=== PATIENT | male | born 1975 | race Caucasian/White ===

== ENCOUNTER 2017-08-12 10:41 | Emergency (ER) | payer MEDICAID ==
[~2017-08-12] VITALS: Ht 167.6 cm; Wt 70.0 kg
[~2017-08-12 10:41] MED LIST: ESOM20CA PO; GABA-532 PO; HYDR-3964 PO; OXCA300T PO; OXCA600T PO
[2017-08-12 10:45] VITALS: BP 95/60
[2017-08-12] MEDS ORDERED: LIDOcaine 1.5% w/epinephrine 1:200,000 5ml ampul IJ ONE (11:20)
[2017-08-12] MEDS ORDERED: cephalexin 250mg capsule PO ONE (11:25)
[2017-08-12] MEDS ORDERED: CEPH500C5 PO (11:41)
== END 2017-08-12 12:13 | disposition home or self-care (01) ==
LOC: ER 10:41
DX: S61.216A Laceration without foreign body of right little finger without damage to nail, initial encounter (principal); I10 Essential (primary) hypertension; E11.9 Type 2 diabetes mellitus without complications; W18.39XA Other fall on same level, initial encounter; Y93.89 Activity, other specified; Y92.89 Other specified places as the place of occurrence of the external cause; Y99.8 Other external cause status
CPT/HCPCS: 12041; 99284; A6449; J3490

== ENCOUNTER 2017-11-06 10:48 | Emergency (ER) | payer MEDICAID ==
[~2017-11-06] VITALS: Ht 167.6 cm; Wt 68.2 kg
[~2017-11-06 10:48] MED LIST changes: +CEPH500C5 PO; -OXCA300T PO; +OXCA300T16 PO; -OXCA600T PO; +OXCA600T9 PO
[2017-11-06] MEDS ORDERED: TETanus/Pertussis (Acell)/Diphther VAC/PF (Tdap-Adult) 0.5ml syringe IM ONE (12:05)
[2017-11-06] MEDS ORDERED: LIDOcaine 4% (40 mg/ml) topical solution 50ml TP ONE (12:05)
[2017-11-06] MEDS ORDERED: HYDROcodone/acetaminophen 10/325mg tab PO ONE (12:10)
[2017-11-06] MEDS ORDERED: cephalexin 500mg capsule PO ONE (12:10)
[2017-11-06] MEDS ORDERED: gentamicin 0.1% topical ointment 15gm TP SCH (12:50)
[2017-11-06] MEDS ORDERED: CEPH500C5 PO (13:41)
[2017-11-06 14:27] VITALS: BP 123/86
== END 2017-11-06 14:29 | disposition home or self-care (01) ==
LOC: ER 10:49
DX: T24.212A Burn of second degree of left thigh, initial encounter (principal); F17.200 Nicotine dependence, unspecified, uncomplicated; Z98.890 Other specified postprocedural states; Z79.899 Other long term (current) drug therapy; X08.8XXA Exposure to other specified smoke, fire and flames, initial encounter; Y93.89 Activity, other specified; Y92.89 Other specified places as the place of occurrence of the external cause; Y99.9 Unspecified external cause status
CPT/HCPCS: 16020; 90471; 90715; 99284; A6255; A6449

== ENCOUNTER 2019-04-29 12:49 | Emergency (ER) | payer MEDICAID ==
[~2019-04-29] VITALS: Ht 167.6 cm; Wt 68.2 kg
[~2019-04-29 12:49] MED LIST changes: -CEPH500C5 PO
[2019-04-29 13:01] VITALS: BP 102/67
[2019-04-29] MEDS ORDERED: acetaminophen 325mg tablet PO ONE (13:15)
== END 2019-04-29 13:35 | disposition home or self-care (01) ==
LOC: ER 12:49
DX: S90.822A Blister (nonthermal), left foot, initial encounter (principal); S90.821A Blister (nonthermal), right foot, initial encounter; F31.9 Bipolar disorder, unspecified; Z59.0 Homelessness; Z72.89 Other problems related to lifestyle; Z98.890 Other specified postprocedural states; Z79.899 Other long term (current) drug therapy; X58.XXXA Exposure to other specified factors, initial encounter; Y93.01 Activity, walking, marching and hiking; Y92.89 Other specified places as the place of occurrence of the external cause; Y99.8 Other external cause status
CPT/HCPCS: 99282

== ENCOUNTER 2019-06-16 19:07 | Inpatient (IN) | payer MEDICAID ==
[~2019-06-16] VITALS: Ht 167.6 cm; Wt 68.2 kg
[2019-06-16] MEDS ORDERED: ondansetron/PF 4mg/2ml inj IV ONE (19:40)
[2019-06-16] MEDS ORDERED: normal saline 1000ML IV soln IVB ONE ×3 (19:40→22:15)
[2019-06-16 19:53] LABS: CLARITY,URINE CLEAR (Clear); GLUCOSE, URINE NEGATIVE (Neg); KETONES,URINE TRACE mg/dl (Neg); LEUKOCYTE ESTERASE ,URINE NEGATIVE (Neg); NITRITES, URINE NEGATIVE (Neg); OCCULT BLOOD,URINE NEGATIVE (Neg); PROTEIN,URINE NEGATIVE (Neg); UROBILINOGEN,URINE >=8.0 E.U/dL (0.2-1.0)
[2019-06-16 20:00] LABS: BASOPHILS # (AUTO) 0.1 X10'3 (0-0.2); BASOPHILS % (AUTO) 0.3 % (0-1); EOSINOPHILS % (AUTO) 0.2 % (0-6); HEMATOCRIT 40.5 % (42.0-52.0); HEMOGLOBIN 13.6 g/dl (14.0-17.9); LYMPHOCYTES # (AUTO) 0.4 X10'3 (1.1-4.8); LYMPHOCYTES % (AUTO) 1.9 % (21-51); MEAN CORPUSCULAR HEMOGLOBIN 32.4 PG (27.0-31.0); MEAN CORPUSCULAR HGB CONC 33.5 g/dL (33.0-36.5); MEAN CORPUSCULAR VOLUME 96.4 FL (78-98); MEAN PLATELET VOLUME 7.6 FL (7.4-10.4); MONOCYTES # (AUTO) 0.4 X10'3 (0-0.9); NEUTROPHILS # (AUTO) 19.4 X10'3 (1.8-7.7); NEUTROPHILS % (AUTO) 95.6 % (42-75); PLATELET COUNT 253 X10'3 (140-440); RED CELL DISTRIBUTION WIDTH 13.9 % (11.5-14.5); WHITE BLOOD COUNT 20.3 X10'3 (4.5-11.0)
[2019-06-16 20:08] LABS: ALANINE AMINOTRANSFERASE 42 U/L (12-78); ALBUMIN 3.1 G/DL (3.4-5.0); ALKALINE PHOSPHATASE 81 IU/L (46-116); ANION GAP 6 (8-16); ASPARTATE AMINO TRANSFERASE 26 U/L (10-37); BILIRUBIN,TOTAL 0.7 MG/DL (0.1-1.0); BLOOD UREA NITROGEN 15 MG/DL (7-18); BUN/CREATININE RATIO 12.6 (5.4-32.0); CALCIUM 8.5 MG/DL (8.5-10.1); CHLORIDE 104 MMOL/L (99-107); CREATININE 1.19 MG/DL (0.60-1.10); GLUCOSE 99 MG/DL (70-104); LIPASE 119 U/L (73-393); POTASSIUM 3.5 MMOL/L (3.5-5.1); SODIUM 136 MMOL/L (135-145); TOTAL PROTEIN 6.3 G/DL (6.4-8.2); URINE AMPHETAMINE SCREEN POSITIVE (Neg); URINE BARBITUATE SCREEN NEGATIVE (Neg); URINE BENZODIAZEPINES SCREEN NEGATIVE (Neg); URINE CANNABINOID SCREEN NEGATIVE (Neg); URINE COCAINE SCREEN NEGATIVE (Neg); URINE METHADONE SCREEN NEGATIVE (Neg); URINE OPIATE SCREEN NEGATIVE (Neg); URINE PHENCYCLIDINE SCREEN NEGATIVE (Neg); eGFR 66 ML/MIN
[2019-06-16 20:11] LABS: COLOR,URINE DARK YELLOW (Yellow); UA COLLECTION TYPE VOIDED
--- NOTE | 2019-06-16 20:13 | NUR ---
assisting RN with pt care, 2nd liter NS infusing w/o, gave pt warm blanket
[2019-06-16 20:35] LABS: TOTAL CELLS COUNTED 100
[2019-06-16 20:36] LABS: PLATELET ESTIMATE NORMAL
[2019-06-16] MEDS ORDERED: normal saline 1000ML IV soln IV ONE (21:10)
[2019-06-16 21:24] LABS: MAGNESIUM 1.7 MG/DL (1.5-2.4)
[2019-06-16] MEDS ORDERED: azithromycin/NS 500mg/250ml 250 ML IV ONE (22:05)
[2019-06-16] MEDS ORDERED: CefTRIAXone 2gm/D5W 50ml 50 ML IV ONE (22:05)
[2019-06-16] MEDS ORDERED: NO HOME MEDS (23:29)
[2019-06-16] MEDS ORDERED: vancomycin/NS 1 GM ADD-VANTAGE 250 ML IV ONE (23:45)
[2019-06-16] MEDS: normal saline 1000ml 1,000 ML IV SCH (23:48)
[2019-06-16] MEDS ORDERED: magnesium hydroxide 30ml (MOM) UD suspension PO PRN (23:50)
[2019-06-16] MEDS ORDERED: mag hydrox/Alum hydrox/simeth 30ml oral suspension PO PRN (23:50)
[2019-06-16] MEDS ORDERED: ondansetron/PF 4mg/2ml inj IV PRN (23:50)
[2019-06-16] MEDS ORDERED: HYDROcodone/acetaminophen 5mg/325mg tablet PO PRN (23:50)
[2019-06-16] MEDS ORDERED: acetaminophen 325mg tablet PO PRN (23:50)
--- NOTE | 2019-06-17 00:30 | NUR ---
Received report from Ramona ISLAS from ED. Patient came up to the floor via gurney. Patient able to transfer into bed with minimal help. Bed in low and locked position. Call light placed within reach.
[2019-06-17] MEDS: normal saline 1000ml 1,000 ML IV SCH (00:43)
[2019-06-17 00:45] VITALS: BP 83/57
--- NOTE | 2019-06-17 01:06 | NUR ---
Attempted to do 2 RN skin check. Patient refusing to let RN's see his skin.
[2019-06-17 05:15] LABS: BASOPHILS # (AUTO) 0.1 X10'3 (0-0.2); BASOPHILS % (AUTO) 0.5 % (0-1); EOSINOPHILS # (AUTO) 0.1 X10'3 (0-0.9); EOSINOPHILS % (AUTO) 0.5 % (0-6); HEMATOCRIT 35.2 % (42.0-52.0); HEMOGLOBIN 11.7 g/dl (14.0-17.9); LYMPHOCYTES % (AUTO) 4.6 % (21-51); MEAN CORPUSCULAR HEMOGLOBIN 32.4 PG (27.0-31.0); MEAN CORPUSCULAR HGB CONC 33.2 g/dL (33.0-36.5); MEAN CORPUSCULAR VOLUME 97.6 FL (78-98); MEAN PLATELET VOLUME 8.1 FL (7.4-10.4); MONOCYTES % (AUTO) 4.8 % (2-12); NEUTROPHILS # (AUTO) 18.6 X10'3 (1.8-7.7); NEUTROPHILS % (AUTO) 89.6 % (42-75); PLATELET COUNT 215 X10'3 (140-440); RED BLOOD COUNT 3.61 X10'6 (4.70-6.10); RED CELL DISTRIBUTION WIDTH 14.6 % (11.5-14.5); WHITE BLOOD COUNT 20.7 X10'3 (4.5-11.0)
[2019-06-17 05:24] LABS: ALANINE AMINOTRANSFERASE 32 U/L (12-78); ALBUMIN 2.3 G/DL (3.4-5.0); ALBUMIN/GLOBULIN RATIO 0.8 (1.1-1.5); ALKALINE PHOSPHATASE 69 IU/L (46-116); ANION GAP 9 (8-16); ASPARTATE AMINO TRANSFERASE 21 U/L (10-37); BILIRUBIN,TOTAL 0.3 MG/DL (0.1-1.0); BLOOD UREA NITROGEN 12 MG/DL (7-18); BUN/CREATININE RATIO 11.9 (5.4-32.0); CALCIUM 7.7 MG/DL (8.5-10.1); CHLORIDE 112 MMOL/L (99-107); CREATININE 1.01 MG/DL (0.60-1.10); GLUCOSE 115 MG/DL (70-104); POTASSIUM 3.8 MMOL/L (3.5-5.1); SODIUM 143 MMOL/L (135-145); TOTAL CARBON DIOXIDE 21.7 MMOL/L (24-32); TOTAL PROTEIN 5.1 G/DL (6.4-8.2); eGFR 80 ML/MIN
[2019-06-17 06:00] VITALS: BP 92/56
--- NOTE | 2019-06-17 06:05 | NUR ---
RECEIVED REPORT FROM ROSHAN CASTILLO
--- NOTE | 2019-06-17 06:23 | NUR ---
Problems reprioritized. Patient report given, questions answered & plan of care reviewed with Nova ISLAS.
[2019-06-17] MEDS ORDERED: CefTRIAXone 2gm/D5W 50ml 50 ML IV SCH (08:00)
[2019-06-17] MEDS ORDERED: heparin, porcine 5000 units/ml vial SQ SCH (08:00)
[2019-06-17 10:00] VITALS: BP 80/51
--- NOTE | 2019-06-17 10:00 | NUR ---
PT IS REFUSING TO KEEP TELE ON AT THIS TIME, CONTINUE TO EDUCATE AND MONITOR
--- NOTE | 2019-06-17 11:17 | NUR ---
NOTIFYING HOSPITALIST OF PT WANTING TO LEAVE, I ASKED IF IT WAS POSSIBLE FOR HOSPITALIST TO COME TO FLOOR AND TALK W/PT, CONTINUE TO EDUCATE PT
[2019-06-17] MEDS ORDERED: vancomycin/NS 1 GM ADD-VANTAGE 250 ML IV SCH (12:00)
--- NOTE | 2019-06-17 12:17 | NUR ---
PAGER ID: [phone] MESSAGE: [phone] Liliya Cody Patient would like to AMGenaro Person9 Addendum: 06/17/19 at 1217 by Linda Cadet RN IV taken out and intake patient tolerated well.
--- NOTE | 2019-06-17 12:20 | NUR ---
Patient stated he had a back pack and pants. Showed me a huff and stated "he needs to get this to someone, this is important"
--- NOTE | 2019-06-17 12:22 | NUR ---
Dr. Doan was notified of patient leaving AMA
--- NOTE | 2019-06-17 12:27 | NUR ---
Patient was worried about the voices he has, one tells him what to do good, and the other is wrong. Educated we could get a [facility] evaluation to help with his voices due to his frustration and wanting to narrow them down. He states he has been over 160 miles, and that people take pictures of him, and tag him on facebook and other social media sites with having a criminal background it isn't good. I asked where he lived and he stated he is homeless and walks [facility].
[2019-06-18] MEDS ORDERED: VANCOMYCIN LEVEL IV ONE (11:30)
== END 2019-06-17 12:25 | disposition left against medical advice (07) | DRG 720 ==
LOC: ER 19:08 → ED HOLD 23:48 → ORTHO 4S 06-17 00:36
PROVIDERS: ADMIT Internal Medicine; ATTEND Internal Medicine
DX: A41.9 Sepsis, unspecified organism (principal); I95.9 Hypotension, unspecified; F31.9 Bipolar disorder, unspecified; F15.10 Other stimulant abuse, uncomplicated; E86.0 Dehydration; Z53.29 Procedure and treatment not carried out because of patient's decision for other reasons; Z59.0 Homelessness
CPT/HCPCS: 36415; 71045; 74176; 80053; 80305; 81003; 83605; 83690; 83735; 84145; 85025; 87040; 87081; 93306; 96374; 99285; G0378; J0456; J0696; J2405; J3370; J7030

== ENCOUNTER 2019-09-29 16:14 | Inpatient (IN) | payer MEDICAID, OTHER ==
[~2019-09-29] VITALS: Ht 167.6 cm; Wt 65.9 kg
[~2019-09-29 16:14] MED LIST changes: -ESOM20CA PO; -GABA-532 PO; -HYDR-3964 PO; +NO HOME MEDS; -OXCA300T16 PO; -OXCA600T9 PO
[2019-09-29] MEDS ORDERED: TETanus/Pertussis (Acell)/Diphther VAC/PF (Tdap-Adult) 0.5ml syringe IMVAC ONE (17:35)
[2019-09-29] MEDS ORDERED: oxyCODONE/APAP 10/325mg tablet PO ONE (19:05)
[2019-09-29 19:21] LABS: CLARITY,URINE CLEAR (Clear); COLOR,URINE YELLOW (Yellow); GLUCOSE, URINE NEGATIVE (Neg); KETONES,URINE NEGATIVE (Neg); LEUKOCYTE ESTERASE ,URINE NEGATIVE (Neg); NITRITES, URINE NEGATIVE (Neg); OCCULT BLOOD,URINE NEGATIVE (Neg); PH,URINE 7.5 (4.8-8.0); PROTEIN,URINE NEGATIVE (Neg); UROBILINOGEN,URINE 0.2 E.U/dL (0.2-1.0)
[2019-09-29 19:22] LABS: UA COLLECTION TYPE VOIDED
--- NOTE | 2019-09-29 20:09 | NUR ---
PT TO GI LAB WITH MARCELLUS
[2019-09-29 20:10] VITALS: BP 101/73
[2019-09-29] MEDS ORDERED: MIDAZolam 5mg/5ml vial ONE (20:21)
[2019-09-29] MEDS ORDERED: fentaNYL/PF 50MCG/1 ML 2ML syringe ONE (20:21)
[2019-09-29] MEDS ORDERED: LIDOcaine Viscous 15ml cup ONE (20:22)
[2019-09-29 20:25] LABS: BASOPHILS # (AUTO) 0.2 X10'3 (0-0.2); HEMOGLOBIN 13.6 g/dl (14.0-17.9); LYMPHOCYTES # (AUTO) 2.1 X10'3 (1.1-4.8); MEAN CORPUSCULAR HGB CONC 33.8 g/dL (33.0-36.5)
[2019-09-29 20:26] LABS: BASOPHILS % (AUTO) 2.4 % (0-1); EOSINOPHILS # (AUTO) 0.7 X10'3 (0-0.9); EOSINOPHILS % (AUTO) 9.1 % (0-6); HEMATOCRIT 40.3 % (42.0-52.0); MEAN CORPUSCULAR VOLUME 97.7 FL (78-98); MEAN PLATELET VOLUME 8.5 FL (7.4-10.4); MONOCYTES # (AUTO) 0.7 X10'3 (0-0.9); MONOCYTES % (AUTO) 9.7 % (2-12); NEUTROPHILS % (AUTO) 51.8 % (42-75); PLATELET COUNT 300 X10'3 (140-440); RED BLOOD COUNT 4.12 X10'6 (4.70-6.10); RED CELL DISTRIBUTION WIDTH 14.1 % (11.5-14.5); WHITE BLOOD COUNT 7.7 X10'3 (4.5-11.0)
[2019-09-29 20:39] LABS: ALANINE AMINOTRANSFERASE 65 U/L (12-78); ALBUMIN 3.3 G/DL (3.4-5.0); ALKALINE PHOSPHATASE 80 IU/L (46-116); ANION GAP 7 (8-16); ASPARTATE AMINO TRANSFERASE 33 U/L (10-37); BILIRUBIN,TOTAL 0.2 MG/DL (0.1-1.0); BLOOD UREA NITROGEN 18 MG/DL (7-18); BUN/CREATININE RATIO 20.2 (5.4-32.0); CALCIUM 8.6 MG/DL (8.5-10.1); CHLORIDE 104 MMOL/L (99-107); CREATININE 0.89 MG/DL (0.60-1.10); GLUCOSE 98 MG/DL (70-104); POTASSIUM 4.1 MMOL/L (3.5-5.1); SODIUM 139 MMOL/L (135-145); TOTAL CARBON DIOXIDE 28.3 MMOL/L (24-32); TOTAL PROTEIN 6.7 G/DL (6.4-8.2); eGFR > 90 ML/MIN
[2019-09-29 20:50] VITALS: BP 92/63
[2019-09-29 21:00] VITALS: BP 98/69
[2019-09-29] MEDS ORDERED: temazepam 15mg capsule PO PRN (21:00)
[2019-09-29] MEDS ORDERED: magnesium hydroxide 30ml (MOM) UD suspension PO ONE (21:05)
[2019-09-29 21:10] VITALS: BP 106/80
[2019-09-29 21:20] VITALS: BP 101/78
[2019-09-29] MEDS ORDERED: potassium CL 10mEq/100ml bag 100 ML IV PRN ×2 (21:25)
[2019-09-29] MEDS ORDERED: potassium Cl 20 mEq SR tablet PO PRN ×2 (21:25)
[2019-09-29] MEDS ORDERED: mag hydrox/Alum hydrox/simeth 30ml oral suspension PO PRN (21:25)
[2019-09-29] MEDS ORDERED: magnesium Cl slow-release 64mg tablet PO PRN (21:25)
[2019-09-29] MEDS ORDERED: morphine 2 MG/ML inj. syringe IV PRN ×2 (21:25)
[2019-09-29] MEDS ORDERED: acetaminophen 325mg tablet PO PRN ×2 (21:25)
[2019-09-29] MEDS ORDERED: magnesium hydroxide 30ml (MOM) UD suspension PO PRN (21:25)
[2019-09-29] MEDS ORDERED: magnesium 4gm in 100ml NS 100 ML IV PRN (21:25)
[2019-09-29] MEDS ORDERED: magnesium 2GM in 50ml NS 50 ML IV PRN (21:25)
[2019-09-29] MEDS ORDERED: ondansetron/PF 4mg/2ml inj IV PRN (21:25)
--- NOTE | 2019-09-29 21:48 | NUR ---
PT BACK FROM GI LAB. WILL ADMINISTER MEDS
[2019-09-29] MEDS: normal saline 1000ml 1,000 ML IV SCH (21:58)
--- NOTE | 2019-09-30 00:20 | NUR ---
PT RESTING COMFORTABLY- APPEARS TO BE ASLEEP. WILL CONTINUE TO MONITOR.
[2019-09-30] MEDS: HYDROcodone/acetaminophen 5mg/325mg tablet PO PRN ×2 (00:22→01:13)
--- NOTE | 2019-09-30 00:22 | NUR ---
PT DID NOT RECEIVE NORCO 5/325MG TAB DUE TO BEING NPO.
--- NOTE | 2019-09-30 01:51 | NUR ---
pt moved to hospital bed for comfort
--- NOTE | 2019-09-30 02:09 | NUR ---
ASSUMED CARE WHILE PRIMARY RN ON BREAK, PT MOVED TO HOSPITAL BED FOR COMFORT. USED URINAL. NO OTHER NEEDS AT THIS TIME
--- NOTE | 2019-09-30 04:46 | NUR ---
PT APPEARS TO BE SLEEPING WITH NO SIGNS OF DISTRESS OR DISCOMFORT- WILL CONTINUE TO MONITOR.
[2019-09-30 07:15] LABS: BASOPHILS % (AUTO) 0.6 % (0-1); EOSINOPHILS # (AUTO) 0.7 X10'3 (0-0.9); EOSINOPHILS % (AUTO) 10.4 % (0-6); HEMATOCRIT 37.5 % (42.0-52.0); HEMOGLOBIN 12.6 g/dl (14.0-17.9); LYMPHOCYTES # (AUTO) 2.3 X10'3 (1.1-4.8); LYMPHOCYTES % (AUTO) 34.3 % (21-51); MEAN CORPUSCULAR HGB CONC 33.5 g/dL (33.0-36.5); MEAN CORPUSCULAR VOLUME 98.5 FL (78-98); MEAN PLATELET VOLUME 8.3 FL (7.4-10.4); MONOCYTES # (AUTO) 0.7 X10'3 (0-0.9); MONOCYTES % (AUTO) 10.6 % (2-12); NEUTROPHILS # (AUTO) 2.9 X10'3 (1.8-7.7); NEUTROPHILS % (AUTO) 44.1 % (42-75); PLATELET COUNT 252 X10'3 (140-440); RED BLOOD COUNT 3.81 X10'6 (4.70-6.10); RED CELL DISTRIBUTION WIDTH 14.1 % (11.5-14.5); WHITE BLOOD COUNT 6.6 X10'3 (4.5-11.0)
[2019-09-30 07:24] LABS: ALANINE AMINOTRANSFERASE 59 U/L (12-78); ALBUMIN 2.9 G/DL (3.4-5.0); ALKALINE PHOSPHATASE 64 IU/L (46-116); ANION GAP 4 (8-16); ASPARTATE AMINO TRANSFERASE 28 U/L (10-37); BILIRUBIN,TOTAL 0.2 MG/DL (0.1-1.0); BLOOD UREA NITROGEN 14 MG/DL (7-18); BUN/CREATININE RATIO 16.5 (5.4-32.0); CALCIUM 8.3 MG/DL (8.5-10.1); CHLORIDE 108 MMOL/L (99-107); CREATININE 0.85 MG/DL (0.60-1.10); GLUCOSE 81 MG/DL (70-104); MAGNESIUM 2.3 MG/DL (1.5-2.4); POTASSIUM 4.2 MMOL/L (3.5-5.1); SODIUM 141 MMOL/L (135-145); TOTAL CARBON DIOXIDE 28.9 MMOL/L (24-32); TOTAL PROTEIN 5.8 G/DL (6.4-8.2); eGFR > 90 ML/MIN
[2019-09-30] MEDS: K and/or MAG REPLACEMENT MC SCH ×2 (08:00→20:00)
[2019-09-30] MEDS: normal saline 1000ml 1,000 ML IV SCH ×2 (10:11→17:37)
[2019-09-30] MEDS: pantoprazole 40 MG vial IV SCH ×2 (10:11→19:25)
[2019-09-30] MEDS: HYDROcodone/acetaminophen 10/325mg tab PO PRN ×3 (10:17→23:28)
--- NOTE | 2019-09-30 13:08 | NUR ---
Malnutrition Consult/RN TC: Pt admit w/ suicide attempt at alf s/p swallowing razor blade components per EMR. Hx SI past few months bashing head on wall at alf, prior homeless and meth abuse hx as well. RN reports pt appears thin and advanced to full liquid diet requesting RD recs for appropriate ONS. RD recommends ensure enlive TIDWM since pt advanced to full liquids. Malnutrition screen reports 2-13 pound wt loss though at this time still pending scaled wt this admit, no mention of cachexia/visible wasting in EMR, and pending physical assessment as well. Will f/u once more malnutrition criteria available to better determine nutrition status. Addendum: 09/30/19 at [address] Amended: Links added.
[2019-09-30 13:12] VITALS: BP 91/64
[2019-09-30 15:00] VITALS: BP 109/51
[2019-09-30 18:00] VITALS: BP 85/57
[2019-09-30] MEDS: lactose-reduced food (Ensure Enlive) - 237ml bottle PO SCH (18:31)
--- NOTE | 2019-09-30 18:46 | NUR ---
Patient in room PCU 3021. I have received report from ROSHAN MCKEON and had the opportunity to ask questions and assume patient care.
[2019-09-30 22:00] VITALS: BP 101/62
[2019-10-01 02:00] VITALS: BP 86/57
[2019-10-01] MEDS: normal saline 1000ml 1,000 ML IV SCH ×2 (03:24→05:51)
[2019-10-01] MEDS: HYDROcodone/acetaminophen 10/325mg tab PO PRN (05:50)
[2019-10-01 06:14] LABS: BASOPHILS # (AUTO) 0.1 X10'3 (0-0.2); BASOPHILS % (AUTO) 2.3 % (0-1); EOSINOPHILS # (AUTO) 0.8 X10'3 (0-0.9); HEMATOCRIT 36.7 % (42.0-52.0); HEMOGLOBIN 12.3 g/dl (14.0-17.9); LYMPHOCYTES # (AUTO) 2.1 X10'3 (1.1-4.8); LYMPHOCYTES % (AUTO) 33.6 % (21-51); MEAN CORPUSCULAR HEMOGLOBIN 33.1 PG (27.0-31.0); MEAN CORPUSCULAR HGB CONC 33.5 g/dL (33.0-36.5); MEAN CORPUSCULAR VOLUME 98.8 FL (78-98); MEAN PLATELET VOLUME 8.7 FL (7.4-10.4); MONOCYTES # (AUTO) 0.6 X10'3 (0-0.9); MONOCYTES % (AUTO) 9.7 % (2-12); NEUTROPHILS # (AUTO) 2.7 X10'3 (1.8-7.7); NEUTROPHILS % (AUTO) 42.4 % (42-75); PLATELET COUNT 260 X10'3 (140-440); RED BLOOD COUNT 3.72 X10'6 (4.70-6.10); RED CELL DISTRIBUTION WIDTH 14.3 % (11.5-14.5); WHITE BLOOD COUNT 6.3 X10'3 (4.5-11.0)
--- NOTE | 2019-10-01 06:14 | NUR ---
Problems reprioritized. Patient report given, questions answered & plan of care reviewed with ROSHAN DAVID.
[2019-10-01 06:28] LABS: ALANINE AMINOTRANSFERASE 57 U/L (12-78); ALBUMIN 2.7 G/DL (3.4-5.0); ALKALINE PHOSPHATASE 61 IU/L (46-116); ANION GAP 4 (8-16); ASPARTATE AMINO TRANSFERASE 27 U/L (10-37); BILIRUBIN,TOTAL 0.3 MG/DL (0.1-1.0); BLOOD UREA NITROGEN 14 MG/DL (7-18); BUN/CREATININE RATIO 17.3 (5.4-32.0); CALCIUM 8.4 MG/DL (8.5-10.1); CHLORIDE 108 MMOL/L (99-107); CREATININE 0.81 MG/DL (0.60-1.10); GLUCOSE 79 MG/DL (70-104); MAGNESIUM 2.1 MG/DL (1.5-2.4); POTASSIUM 4.1 MMOL/L (3.5-5.1); SODIUM 140 MMOL/L (135-145); TOTAL CARBON DIOXIDE 28.4 MMOL/L (24-32); TOTAL PROTEIN 5.5 G/DL (6.4-8.2); eGFR > 90 ML/MIN
--- NOTE | 2019-10-01 06:46 | NUR ---
Patient in room PCU 3021. I have received report from Alexei ISLAS and had the opportunity to ask questions and assume patient care.
[2019-10-01 06:58] VITALS: BP 85/54
[2019-10-01] MEDS: pantoprazole 40 MG vial IV SCH (07:15)
[2019-10-01] MEDS: K and/or MAG REPLACEMENT MC SCH (08:00)
[2019-10-01] MEDS: lactose-reduced food (Ensure Enlive) - 237ml bottle PO SCH (08:00)
[2019-10-01] MEDS ORDERED: HYDR-4383 PO ×2 (08:26→09:40)
[2019-10-01] MEDS ORDERED: pneumococcal 23-VAL P-sac vacc 25 mcg/0.5ml vial IMVAC ONE (10:00)
== END 2019-10-01 10:17 | DRG 394 ==
LOC: ER 16:14 → ED HOLD 21:24 → EEVIPCON 21:24 → PCU 3S 09-30 07:43
PROVIDERS: ADMIT Internal Medicine; ATTEND Internal Medicine
PROC: 0DC68ZZ Extirpation of Matter from Stomach, Via Natural or Artificial Opening Endoscopic (ICD-10-PCS; principal; 2019-09-29)
DX: T18.2XXA Foreign body in stomach, initial encounter (principal); R45.851 Suicidal ideations; F15.90 Other stimulant use, unspecified, uncomplicated; F31.9 Bipolar disorder, unspecified; K20.9 Esophagitis, unspecified; X58.XXXA Exposure to other specified factors, initial encounter; Y93.89 Activity, other specified; Y92.89 Other specified places as the place of occurrence of the external cause; Y99.8 Other external cause status; Z59.0 Homelessness; Z28.21 Immunization not carried out because of patient refusal
CPT/HCPCS: 36415; 43235; 71045; 74018; 74176; 80053; 81003; 83605; 83735; 85025; 85610; 87040; 87081; 90471; 90715; 99152; 99285; A4620; C9113; G0378; J2250; J3010; J7030; J7040

== ENCOUNTER 2019-12-08 15:14 | Emergency (ER) | payer MEDICAID, OTHER ==
[~2019-12-08] VITALS: Ht 167.6 cm; Wt 63.6 kg
[~2019-12-08 15:14] MED LIST changes: +HYDR-4383 PO; -NO HOME MEDS
[2019-12-08] MEDS ORDERED: normal saline 1000ml 1,000 ML IV ONE (16:30)
--- NOTE | 2019-12-08 16:35 | NUR ---
Discussed pt's audio hallucinations with SAROJ Garcia who f/u with pt who indicated he was feeling the same internally (emotionally) as when he swallowed razor blades. SAROJ Garcia placed pt on 1798 hold.
[2019-12-08] MEDS ORDERED: proCHLORperazine 10 MG/2 ml inj IV ONE (16:40)
[2019-12-08] MEDS ORDERED: diphenhydrAMINE 50 mg/ml inj IV ONE (16:40)
[2019-12-08 16:41] LABS: BASOPHILS # (AUTO) 0.1 X10'3 (0-0.2); BASOPHILS % (AUTO) 1.3 % (0-1); EOSINOPHILS # (AUTO) 0.2 X10'3 (0-0.9); EOSINOPHILS % (AUTO) 2.4 % (0-6); HEMATOCRIT 42.5 % (42.0-52.0); HEMOGLOBIN 14.3 g/dl (14.0-17.9); LYMPHOCYTES # (AUTO) 1.3 X10'3 (1.1-4.8); LYMPHOCYTES % (AUTO) 15.3 % (21-51); MEAN CORPUSCULAR HEMOGLOBIN 32.9 PG (27.0-31.0); MEAN CORPUSCULAR HGB CONC 33.6 g/dL (33.0-36.5); MEAN CORPUSCULAR VOLUME 98.2 FL (78-98); MEAN PLATELET VOLUME 8.1 FL (7.4-10.4); MONOCYTES # (AUTO) 0.5 X10'3 (0-0.9); MONOCYTES % (AUTO) 5.8 % (2-12); NEUTROPHILS # (AUTO) 6.2 X10'3 (1.8-7.7); NEUTROPHILS % (AUTO) 75.2 % (42-75); PLATELET COUNT 343 X10'3 (140-440); RED BLOOD COUNT 4.33 X10'6 (4.70-6.10); RED CELL DISTRIBUTION WIDTH 13.8 % (11.5-14.5); WHITE BLOOD COUNT 8.2 X10'3 (4.5-11.0)
[2019-12-08 16:41] LABS: CLARITY,URINE CLEAR (Clear); COLOR,URINE YELLOW (Yellow); GLUCOSE, URINE NEGATIVE (Neg); KETONES,URINE NEGATIVE (Neg); LEUKOCYTE ESTERASE ,URINE NEGATIVE (Neg); NITRITES, URINE NEGATIVE (Neg); OCCULT BLOOD,URINE TRACE-INTACT (Neg); PROTEIN,URINE NEGATIVE (Neg); UROBILINOGEN,URINE 0.2 E.U/dL (0.2-1.0)
[2019-12-08 16:45] LABS: UA COLLECTION TYPE URINAL
[2019-12-08 16:46] LABS: BACTERIA,URINE NONE SEEN /HPF (Neg); MUCUS STRANDS NONE SEEN /LPF (Neg); RBC,URINE 0-2 /HPF (0-2); SQUAMOUS EPITHELIAL CELL,UR NONE SEEN /LPF (FEW); WBC,URINE NONE SEEN /HPF (0-4)
[2019-12-08 16:52] LABS: ALANINE AMINOTRANSFERASE 51 U/L (12-78); ALBUMIN 3.5 G/DL (3.4-5.0); ALKALINE PHOSPHATASE 101 IU/L (46-116); ANION GAP 9 (8-16); ASPARTATE AMINO TRANSFERASE 40 U/L (10-37); BILIRUBIN,TOTAL 0.4 MG/DL (0.1-1.0); BLOOD UREA NITROGEN 15 MG/DL (7-18); BUN/CREATININE RATIO 16.5 (5.4-32.0); CALCIUM 9.5 MG/DL (8.5-10.1); CHLORIDE 101 MMOL/L (99-107); CREATININE 0.91 MG/DL (0.60-1.10); GLUCOSE 149 MG/DL (70-104); POTASSIUM 3.5 MMOL/L (3.5-5.1); SODIUM 136 MMOL/L (135-145); TOTAL CARBON DIOXIDE 25.6 MMOL/L (24-32); TOTAL PROTEIN 6.9 G/DL (6.4-8.2); eGFR 90 ML/MIN
--- NOTE | 2019-12-08 16:52 | NUR ---
Pt moved from ED3 to ED16 d/t change of status to 1799.
[2019-12-08 16:53] LABS: ETHANOL 0.123 GM/DL (0.0-0.010); LIPASE 176 U/L (73-393)
[2019-12-08 17:09] LABS: URINE AMPHETAMINE SCREEN NEGATIVE (Neg); URINE BARBITUATE SCREEN NEGATIVE (Neg); URINE BENZODIAZEPINES SCREEN NEGATIVE (Neg); URINE CANNABINOID SCREEN NEGATIVE (Neg); URINE COCAINE SCREEN NEGATIVE (Neg); URINE METHADONE SCREEN NEGATIVE (Neg); URINE OPIATE SCREEN NEGATIVE (Neg); URINE PHENCYCLIDINE SCREEN NEGATIVE (Neg)
--- NOTE | 2019-12-08 17:41 | NUR ---
in bed appears to be sleeping rise and fall of chest noted
[2019-12-08] MEDS ORDERED: NO HOME MEDS (18:43)
--- NOTE | 2019-12-08 20:02 | NUR ---
pt arrived to ed overflow bed 24. Pt sleeping in bed. no s/s of distress or pain. On assessment pt reports that he has hx of si attempts including an attempt a week ago of hanging, "but the branch broke". On assessment pt has no obvious signs of trauma or bruising to neck. pt reports no difficulty swallowing, and states "you won't see any damage". unknown how much damage was there initially. per report, pt has si attempt of swallowing razor blades in the past. Pt states that he is seeking help and has no si at this time.
--- NOTE | 2019-12-08 21:30 | NUR ---
Provider Jose aware of pt's recent attempt to hang.
--- NOTE | 2019-12-09 00:20 | NUR ---
RECEIVED REPORT FROM DAV ISLAS, ASSUMED CARE OF PT
--- NOTE | 2019-12-09 01:30 | NUR ---
PT APPEARS TO BE ASLEEP, RR EVEN AND UNLABORED, WILL CONTINUE TO MONITOR
--- NOTE | 2019-12-09 02:30 | NUR ---
PT APPEARS TO BE ASLEEP, RR EVEN AND UNLABORED, WILL CONTINUE TO MONITOR
--- NOTE | 2019-12-09 03:30 | NUR ---
PT APPEARS TO BE ASLEEP, RR EVEN AND UNLABORED, WILL CONTINUE TO MONITOR
--- NOTE | 2019-12-09 04:30 | NUR ---
PT APPEARS TO BE ASLEEP, RR EVEN AND UNLABORED, WILL CONTINUE TO MONITOR
--- NOTE | 2019-12-09 05:30 | NUR ---
PT APPEARS TO BE ASLEEP, RR EVEN AND UNLABORED, WILL CONTINUE TO MONITOR
[2019-12-09 06:15] VITALS: BP 103/72
--- NOTE | 2019-12-09 12:11 | NUR ---
PT. ASSESSED BY [facility] AND HAS RECOMMENED THE PATIENT BE DISCHARGED AND TO FOLLOW UP WITH A [facility]. EDUCATION HAS BEEN PROVIDED. PATIENT STATES UNDERSTANDING. IS BENG PREPARED FOR DISCHARGE.
== END 2019-12-09 12:23 ==
LOC: ER 15:15
DX: F32.9 Major depressive disorder, single episode, unspecified (principal); F15.10 Other stimulant abuse, uncomplicated; R10.9 Unspecified abdominal pain; R53.1 Weakness; Z86.19 Personal history of other infectious and parasitic diseases; Z98.890 Other specified postprocedural states; Z60.2 Problems related to living alone; Z59.0 Homelessness; Z56.0 Unemployment, unspecified
CPT/HCPCS: 36415; 80053; 80305; 80320; 81001; 83690; 85025; 96361; 96374; 96375; 99285; J0780; J1200; J7030

== ENCOUNTER 2020-07-11 21:17 | Emergency (ER) | payer MEDICAID ==
[~2020-07-11] VITALS: Ht 167.6 cm; Wt 63.1 kg
[~2020-07-11 21:17] MED LIST changes: -HYDR-4383 PO; +NO HOME MEDS
--- NOTE | 2020-07-11 21:35 | NUR ---
Pt states he smoked meth today and had ETOH this morning. He states he drinks everyday and has been through withdrawls from ETOH before.
[2020-07-11 21:46] LABS: BASOPHILS # (AUTO) 0.1 X10'3 (0-0.2); BASOPHILS % (AUTO) 1.9 % (0-1); EOSINOPHILS # (AUTO) 0.7 X10'3 (0-0.9); EOSINOPHILS % (AUTO) 11.1 % (0-6); HEMATOCRIT 37.7 % (42.0-52.0); HEMOGLOBIN 12.9 g/dl (14.0-17.9); LYMPHOCYTES # (AUTO) 2.1 X10'3 (1.1-4.8); LYMPHOCYTES % (AUTO) 33.6 % (21-51); MEAN CORPUSCULAR HEMOGLOBIN 32.2 PG (27.0-31.0); MEAN CORPUSCULAR HGB CONC 34.2 g/dL (33.0-36.5); MEAN CORPUSCULAR VOLUME 94.1 FL (78-98); MEAN PLATELET VOLUME 7.4 FL (7.4-10.4); MONOCYTES # (AUTO) 0.5 X10'3 (0-0.9); MONOCYTES % (AUTO) 7.7 % (2-12); NEUTROPHILS # (AUTO) 2.9 X10'3 (1.8-7.7); NEUTROPHILS % (AUTO) 45.7 % (42-75); PLATELET COUNT 317 X10'3 (140-440); RED CELL DISTRIBUTION WIDTH 14.2 % (11.5-14.5); WHITE BLOOD COUNT 6.4 X10'3 (4.5-11.0)
[2020-07-11 21:56] LABS: ALANINE AMINOTRANSFERASE 49 U/L (12-78); ALBUMIN 3.5 G/DL (3.4-5.0); ALKALINE PHOSPHATASE 102 IU/L (46-116); ANION GAP 13 (8-16); ASPARTATE AMINO TRANSFERASE 28 U/L (10-37); BILIRUBIN,TOTAL 0.3 MG/DL (0.1-1.0); BLOOD UREA NITROGEN 16 MG/DL (7-18); BUN/CREATININE RATIO 17.4 (5.4-32.0); CALCIUM 8.7 MG/DL (8.5-10.1); CHLORIDE 104 MMOL/L (99-107); CREATININE 0.92 MG/DL (0.60-1.10); GLUCOSE 80 MG/DL (70-104); SODIUM 141 MMOL/L (135-145); TOTAL CARBON DIOXIDE 23.9 MMOL/L (24-32); TOTAL PROTEIN 7.1 G/DL (6.4-8.2); eGFR 89 ML/MIN
--- NOTE | 2020-07-11 22:18 | NUR ---
report given by Ramona ISLAS, assumed care. pt given food. ERP at bedside.
[2020-07-11 22:28] LABS: CLARITY,URINE CLEAR (Clear); COLOR,URINE YELLOW (Yellow); GLUCOSE, URINE NEGATIVE (Neg); KETONES,URINE NEGATIVE (Neg); LEUKOCYTE ESTERASE ,URINE NEGATIVE (Neg); NITRITES, URINE NEGATIVE (Neg); OCCULT BLOOD,URINE LARGE (Neg); PH,URINE 5.5 (4.8-8.0); PROTEIN,URINE NEGATIVE (Neg)
[2020-07-11 22:37] LABS: UA COLLECTION TYPE CLN CATCH MIDSTREAM
[2020-07-11 22:38] LABS: BACTERIA,URINE NONE SEEN /HPF (Neg); SQUAMOUS EPITHELIAL CELL,UR FEW /LPF (FEW); WBC,URINE NONE SEEN /HPF (0-4)
[2020-07-11 22:39] LABS: URINE AMPHETAMINE SCREEN POSITIVE (Neg); URINE BARBITUATE SCREEN NEGATIVE (Neg); URINE BENZODIAZEPINES SCREEN NEGATIVE (Neg); URINE CANNABINOID SCREEN NEGATIVE (Neg); URINE COCAINE SCREEN NEGATIVE (Neg); URINE METHADONE SCREEN NEGATIVE (Neg); URINE OPIATE SCREEN NEGATIVE (Neg); URINE PHENCYCLIDINE SCREEN NEGATIVE (Neg)
--- NOTE | 2020-07-11 23:39 | NUR ---
sitter in view of pt. pt appears asleep
--- NOTE | 2020-07-12 03:07 | NUR ---
report given to RN, care transferred
--- NOTE | 2020-07-12 04:15 | NUR ---
Pt resting comfortably, respirations normal, no s/s of distress.
--- NOTE | 2020-07-12 04:58 | NUR ---
PACKET FAXED TO [facility] BY CHAZ LEON
--- NOTE | 2020-07-12 05:20 | NUR ---
Pt resting comfortably, respirations normal, no s/s of distress.
--- NOTE | 2020-07-12 06:25 | NUR ---
Patient ambulatory, steady gait from the Main to ED OF bed 24. No distress observed. Continue to monitor.
--- NOTE | 2020-07-12 08:15 | NUR ---
Patient sitting up and eating. No distress observed. Continue to monitor.
--- NOTE | 2020-07-12 09:33 | NUR ---
Patient pacing and talking to himself "fuck you". Patient looking down as he walks. Patient does not appear distressed. Continue to monitor.
--- NOTE | 2020-07-12 10:20 | NUR ---
Lorrie DEY, evaluating patient. Continue to monitor.
--- NOTE | 2020-07-12 10:55 | NUR ---
[facility] upholding the SO 5150.
--- NOTE | 2020-07-12 13:16 | NUR ---
Patient sitting up and eating. No distress observed. Continue to monitor.
--- NOTE | 2020-07-12 15:05 | NUR ---
Patient accepted at [facility]. Patient will be picked up ton and 2114. Patient currently sleeping. No distress observed. Continue to monitor.
--- NOTE | 2020-07-12 17:03 | NUR ---
Patient reclining in bed sleeping. No distress observed. continue to monitor.
--- NOTE | 2020-07-12 18:30 | NUR ---
The patient has been resting on his bed after eating his dinner.
--- NOTE | 2020-07-12 19:53 | NUR ---
One to one with the patient who appears very fatiqued. He was cooperative with answering assessment questions. He stated he continues to hear voices and they have not decreased since he was admitted. He was made aware that he will be transported to [facility] later this evening.
[2020-07-12 21:29] VITALS: BP 96/65
== END 2020-07-12 21:32 ==
LOC: ER 21:17
DX: R45.851 Suicidal ideations (principal); Z20.822 Contact with and (suspected) exposure to COVID-19; R44.0 Auditory hallucinations; F31.9 Bipolar disorder, unspecified; F17.200 Nicotine dependence, unspecified, uncomplicated; F15.90 Other stimulant use, unspecified, uncomplicated; Z86.19 Personal history of other infectious and parasitic diseases; Z72.89 Other problems related to lifestyle; Z60.2 Problems related to living alone; Z56.0 Unemployment, unspecified; Z59.0 Homelessness; Z98.890 Other specified postprocedural states
CPT/HCPCS: 36415; 80053; 80305; 80320; 81001; 84443; 85025; 87426; 99285

== ENCOUNTER 2022-10-13 15:49 | Emergency (ER) | payer MEDICAID ==
[~2022-10-13] VITALS: Ht 167.6 cm; Wt 63.6 kg
[2022-10-13 15:55] VITALS: RESP 18
[2022-10-13 16:24] LABS: BASOPHILS % (AUTO) 0.6 % (0-1); EOSINOPHILS % (AUTO) 0.4 % (0-6); HEMATOCRIT 42.6 % (42.0-52.0); HEMOGLOBIN 14.4 g/dl (14.0-17.9); LYMPHOCYTES % (AUTO) 13.9 % (21-51); MEAN CORPUSCULAR HEMOGLOBIN 31.2 PG (27.0-31.0); MEAN CORPUSCULAR HGB CONC 33.8 g/dL (33.0-36.5); MEAN CORPUSCULAR VOLUME 92.2 FL (78-98); MEAN PLATELET VOLUME 8.9 FL (7.4-10.4); MONOCYTES # (AUTO) 0.6 X10'3 (0-0.9); MONOCYTES % (AUTO) 8.6 % (2-12); NEUTROPHILS # (AUTO) 5.6 X10'3 (1.8-7.7); NEUTROPHILS % (AUTO) 76.5 % (42-75); PLATELET COUNT 290 X10'3 (140-440); RED BLOOD COUNT 4.62 X10'6 (4.70-6.10); RED CELL DISTRIBUTION WIDTH 14.6 % (11.5-14.5); WHITE BLOOD COUNT 7.3 X10'3 (4.5-11.0)
[2022-10-13 17:02] LABS: ALANINE AMINOTRANSFERASE 38 U/L (12-78); ALBUMIN 3.5 G/DL (3.4-5.0); ALBUMIN/GLOBULIN RATIO 1.1 (1.1-1.5); ALKALINE PHOSPHATASE 78 IU/L (46-116); ANION GAP 14 (8-16); ASPARTATE AMINO TRANSFERASE 29 U/L (10-37); BILIRUBIN,TOTAL 0.7 MG/DL (0.1-1.0); BLOOD UREA NITROGEN 10 MG/DL (7-18); BUN/CREATININE RATIO 13.3 (10.0-20.0); CALCIUM 9.4 MG/DL (8.5-10.1); CHLORIDE 97 MMOL/L (99-107); CREATININE 0.75 MG/DL (0.60-1.10); GLUCOSE 113 MG/DL (70-104); SODIUM 136 MMOL/L (135-145); TOTAL CARBON DIOXIDE 25.1 MMOL/L (24-32); TOTAL PROTEIN 6.8 G/DL (6.4-8.2); eCRCL 108 ML/MIN; eGFR > 90 ML/MIN
[2022-10-13 17:10] LABS: PRO BRAIN NATRIURETIC PEPTIDE 269 PG/ML (0-125)
[2022-10-13 17:35] VITALS: BP 135/87; PULSE 96; TEMP 97.3; O2SAT 96
[2022-10-13] MEDS ORDERED: potassium Cl 20 mEq SR tablet PO STA (23:10)
[2022-10-13] MEDS ORDERED: POTA-192 PO (23:19)
== END 2022-10-13 23:48 | disposition home or self-care (01) ==
LOC: ER 15:50
DX: E87.6 Hypokalemia (principal); F15.10 Other stimulant abuse, uncomplicated; F31.9 Bipolar disorder, unspecified; Z79.899 Other long term (current) drug therapy
CPT/HCPCS: 36415; 71045; 80053; 83880; 84484; 85025; 93005; 99285